=== PATIENT | male | born 1995 ===

== ENCOUNTER 2020-12-15 18:00 | Emergency (ER) | payer OTHER ==
[~2020-12-15] VITALS: Ht 182.9 cm; Wt 99.8 kg
[2020-12-15 18:06] VITALS: BP 133/75
[2020-12-15] MEDS ORDERED: HYDROcodone/APAP 5/325 MG 1 TAB TAB PO ONE (18:35)
[2020-12-15] MEDS ORDERED: KETOROLAC 30 MG/ML VIAL IM ONE (18:35)
[2020-12-15] MEDS ORDERED: diazePAM 5 MG TAB PO ONE (18:35)
--- NOTE | 2020-12-15 19:25 | NUR ---
REPORT RECEIVED FROM ORIANA HERNANDEZ FOR CONTINUITY OF CARE
--- NOTE | 2020-12-15 19:48 | NUR ---
PT PROVIDED WITH MEAL AT THIS TIME.
[2020-12-15 20:13] VITALS: BP 133/75
--- NOTE | 2020-12-15 20:13 | NUR ---
Patient discharged with v/s stable. Written and verbal after care instructions given and explained. Patient alert, oriented and verbalized understanding of instructions. Ambulatory with steady gait. All questions addressed prior to discharge. ID band removed. Patient advised to follow up with PMD. Rx of VALIUM, IBUPROFEN and NORCO given. Patient educated on indication of medication including possible reaction and side effects. Opportunity to ask questions provided and answered.
== END 2020-12-15 20:13 | disposition home or self-care (01) ==
LOC: MED 18:00
DX: M79.10 Myalgia, unspecified site (principal); M25.561 Pain in right knee; J45.909 Unspecified asthma, uncomplicated; V89.2XXA Person injured in unspecified motor-vehicle accident, traffic, initial encounter; Y93.89 Activity, other specified; Y92.89 Other specified places as the place of occurrence of the external cause; Y99.8 Other external cause status
CPT/HCPCS: 72040; 73562; 96372; 99284; J1885